=== PATIENT | male | born 1965 | race Caucasian/White ===

== ENCOUNTER 2017-10-07 23:25 | Observation (INO) ==
[2017-10-07 23:53] LABS: Basophils # 0.2 K/mcL (0.0-0.2); Basophils % 0.8 %; Eosinophils # 0.1 K/mcL (0.0-0.6); Eosinophils % 0.2 %; Hematocrit 51.8 % (37.5-50.1); Hemoglobin 17.5 g/dL (12.9-16.9); Immature Granulocytes % 3.2 % (0-4); Lymphocytes # 1.3 K/mcL (0.6-4.6); Lymphocytes % 5.2 %; Mean Corpuscular HGB Conc 33.8 g/dL (31.6-35.5); Mean Corpuscular Hemoglobin 28.5 pg (28.0-33.3); Mean Corpuscular Volume 84.5 fL (83.0-100.0); Monocytes # 1.9 K/mcL (0.0-1.3); Monocytes % 7.9 %; Neutrophils # 19.9 K/mcL (1.6-8.9); Platelet Count 272 K/mcL (140-400); Red Blood Count 6.13 M/mcL (4.19-5.50); Red Cell Distribution Width 15.6 % (11.5-14.5); Segmented Neutrophils % 82.7 %
[2017-10-08 00:13] LABS: Albumin 4.6 g/dL (3.5-5.7); Albumin/Globulin Ratio 1.4 (1.1-2.2); Bilirubin,Direct 0.2 mg/dL (0.0-0.2); Bilirubin,Indirect 0.4 mg/dL (0.0-1.2); Bilirubin,Total 0.6 mg/dL (0.3-1.0); Calcium 9.3 mg/dL (8.6-10.3); Globulin 3.2 g/dL (2.4-3.5); Total Protein 7.8 g/dL (6.4-8.9)
[2017-10-08] MEDS ORDERED: Isovue-370 500 ML INFUS..BTL IV ONE (00:37)
[2017-10-08] MEDS ORDERED: Haloperidol Lactate 5 MG/ML VIAL IVP ONE (00:38)
[2017-10-08] MEDS: 0.9 % Sodium Chloride 1,000 ML IVC SCH ×2 (00:58→01:59)
[2017-10-08] MEDS ORDERED: Potassium Chloride 40 MEQ, Lidocaine 1% 2 ML in D5% in Water 500 ML IVPB ONE ×2 (01:00→05:30)
--- NOTE | 2017-10-08 01:44 | Emergency Department Note ---
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 No provoking or alleviating factors. Denies any recent marijuana use. Has not tried any medication to make this better. Does have a history of Parkinson's. Pain Scale: 6 - Related Data Home Medications Medication Instructions Recorded Confirmed Carbidopa/Levodopa [Carbidopa-Levo 1 each PO TIDWM 08/07/15 01/16/16 ER 25-100 Tab] Sertraline [Zoloft] 50 mg PO DAILY 08/07/15 01/16/16 Aspirin Enteric Coated [Aspirin EC] 81 mg PO DAILY 01/16/16 01/16/16 Carbidopa/Levodopa 25/100 [Sinemet 1 each PO TID 01/16/16 01/16/16 25/100] Tamsulosin HCl [Flomax] 0.4 mg PO DAILY 01/16/16 01/16/16 Vitamin D3 04/30/17 Zantac 04/30/17 Previous Rx's Medication Instructions Recorded Amoxicillin 875 mg PO BID #20 tablet 04/30/17 Azithromycin 250 mg PO ONCE 4 Days tablet 09/21/17 Triamcinolone Acet 0.1% CRM 453.6 gm TP 2-4XD PRN #1 cream..g. 09/21/17 [Kenalog] Allergies Allergy/AdvReac Type Severity Reaction Status Date / Time ropinirole [From Requip] AdvReac Nausea Verified 10/07/17 23:29 All systems ED: reviewed and negative except as stated. Constitutional: Denies: fever Cardiovascular: Denies: chest pain, syncope Respiratory: Denies: cough, dyspnea Gastrointestinal: Reports: abdominal pain, nausea, vomiting, diarrhea. Denies: hematemesis, melena, hematochezia Genitourinary: Denies: urgency, dysuria, frequency, testicular mass Musculoskeletal: Denies: back pain, neck pain Integumentary: Denies: rash Neurological: Denies: headache, weakness Past Medical History - Past Medical History Attestation: Yes The following information was validated with the patient. Source: patient Medical history: Reports: other Surgical history: Reports: other Psychiatric history: Reports: no psych history - Social History Smoking Status: Current every day smoker Smokeless Tobacco Status: No Alcohol use: Reports: none Drug use: Reports: none Physical Exam - General Limitations: no limitations General appearance: alert, in no apparent distress - Head Head exam: atraumatic, normocephalic, normal inspection - Eye Eye exam: Present: normal appearance, PERRL, EOMI - ENT ENT exam: normal exam, normal oropharynx, mucous membranes moist - Neck Neck exam: Present: normal inspection, full ROM, trachea midline - Chest Chest inspection: Present: normal inspection, symmetric chest wall rise - Respiratory Respiratory exam: Present: normal lung sounds bilaterally. Absent: respiratory distress, accessory muscle use - Cardiovascular Cardiovascular exam: Present: regular rate, normal rhythm, normal heart sounds - Abdominal Exam Abdominal exam: Present: soft, tenderness (Throughout.). Absent: distention, guarding, rigidity, organomegaly - Extremities Exam Extremities exam: Present: normal inspection, full ROM, normal capillary refill. Absent: tenderness, pedal edema - Back Exam Back exam: Present: normal inspection, full ROM. Absent: tenderness - Neurological Exam Neurological exam: Present: alert, oriented X3 - Psychiatric Psychiatric exam: Present: normal affect, normal mood - Skin Skin exam: Present: warm, dry, intact, normal color. Absent: rash, cyanosis Course Course Narrative: Male patient presenting to emergency department complaining of abdominal pain nausea vomiting diarrhea that started yesterday. States that the pain as a cramping sensation. Has not taken any medication to try to help with this. He is mentating appropriately. Patient does have a history of sarcoidosis as well as department. We will provide him with Haldol for nausea management. This has stopped patient's vomiting. Patient's abdomen is soft however he does complain of a diffuse cramping on exam. He denies any recent illnesses or fevers. Denies any cough or congestion. We will get a basic lab workup on patient and a CT of patient's abdomen. - Reevaluation(s) Reevaluation #1: Patient reevaluated. He states that he is starting to feel somewhat better. He does appear clinically the high alkaline phosphatase is elevated he has a leukocytosis of 24. He does have a history of Parkinson's as well as sarcoidosis. We have given him 2 L of fluid in her replacing his potassium at this time. We will admit the patient to the hospital at this time. He is agreeable with this. Time: 03:15 - Consultations Consultation #1: Dr Forde accepted Pt in stable condition. Time: 03:37 Vital Signs Temperature 98.1 F 10/07/17 23:26 Pulse Rate 97 10/07/17 23:26 Respiratory Rate 20 10/07/17 23:26 Blood Pressure 149/101 10/07/17 23:26 O2 Sat by Pulse Oximetry 97 10/07/17 23:26 Temperature 98.1 F 10/07/17 23:26 Pulse Rate 81 10/08/17 01:34 Respiratory Rate 20 10/08/17 01:34 Blood Pressure 163/101 10/08/17 01:34 O2 Sat by Pulse Oximetry 99 10/08/17 01:34 Oxygen Delivery Oxygen Delivery Room Air Medical Decision Making - Medical Records Medical records reviewed: Yes I reviewed the patient's medical records. - Lab Data Lab results reviewed: Yes I reviewed the patient's lab results. Result diagrams: 10/07/17 23:36 10/07/17 23:36 Lab Results 10/07/17 10/07/17 Range/Units 23:36 23:36 WBC 24.1 H (4.3-11.1) K/mcL RBC 6.13 H (4.19-5.50) M/mcL Hgb 17.5 H (12.9-16.9) g/dL Hct 51.8 H (37.5-50.1) % MCV 84.5 (83.0-100.0) fL MCH 28.5 (28.0-33.3) pg MCHC 33.8 (31.6-35.5) g/dL RDW 15.6 H (11.5-14.5) % Plt Count 272 (140-400) K/mcL MPV 11.0 (9.4-12.4) fL Immature Gran % 3.2 (0-4) % Seg Neutrophils % 82.7 % Lymphocytes % 5.2 % Monocytes % 7.9 % Eosinophils % 0.2 % Basophils % 0.8 % Neutrophils # 19.9 H (1.6-8.9) K/mcL Lymphocytes # 1.3 (0.6-4.6) K/mcL Monocytes # 1.9 H (0.0-1.3) K/mcL Eosinophils # 0.1 (0.0-0.6) K/mcL Basophils # 0.2 (0.0-0.2) K/mcL Sodium 137 (136-145) mEq/L Potassium 3.0 L (3.5-5.1) mEq/L Chloride 103 (98-107) mEq/L Carbon Dioxide 16 L (23-29) mEq/L BUN 35 H (6-20) mg/dL Creatinine 1.86 H (0.70-1.30) mg/dL Est GFR ( Amer) 47 L (> 60) Est GFR (Non-Af Amer) 38 L (> 60) BUN/Creatinine Ratio 19 (6-26) Glucose 127 H (70-105) mg/dL Calculated Osmolality 294 (280-300) Calcium 9.3 (8.6-10.3) mg/dL Total Bilirubin 0.6 (0.3-1.0) mg/dL Direct Bilirubin 0.2 (0.0-0.2) mg/dL Indirect Bilirubin 0.4 (0.0-1.2) mg/dL AST 30 (13-39) Units/L ALT 17 (7-52) Units/L Alkaline Phosphatase 114 H (34-104) Units/L Serum Total Protein 7.8 (6.4-8.9) g/dL Albumin 4.6 (3.5-5.7) g/dL Globulin 3.2 (2.4-3.5) g/dL Albumin/Globulin Ratio 1.4 (1.1-2.2) Lipase 61 (11-82) Units/L - Radiology Data Radiology results reviewed: Yes I reviewed the patient's radiology results. Abdomen/Pelvis CT 10/08/17 00:37 IMPRESSION: 1. No acute abnormality in the abdomen or pelvis. 2. Cholelithiasis with no evidence of acute inflammation. 3. Left nonobstructing nephrolithiasis. 4. Stable appearance of renal cysts which cannot be definitively characterized. Based upon size and attenuation, these can be considered benign and no further follow-up is necessary. 5. Significant improvement an airspace changes and nodularity in the lower lungs suggesting a resolving infectious or inflammatory process. 6. D/ / Vance Mccain MD / Vance Mccain MD Interpreting Provider: Vance Mccain MD - EKG Data EKG #1 EKG attestation: Yes I reviewed and interpreted this EKG. EKG results narrative: Normal sinus rhythm at a rate of 99. AK interval is 142. Liseth duration is 128. QT is 371. QTC is 428. No signs of ischemia. Patient does have a left bundle branch block. This was on previous EKG dated 08/22/2015. No significant changes.
[2017-10-08 03:03] LABS: Bilirubin,Urine Negative (Negative); Blood,Urine Negative (Negative); Clarity,Urine Clear (Clear); Color,Urine Yellow (Yellow); Glucose,Urine (UA) Normal (Normal); Ketones,Urine Negative (Negative); Leukocyte Esterase,Urine Negative (Negative); Nitrite,Urine Negative (Negative); Protein,Urine Trace mg/dL (Neg-Trace); Specific Gravity,Urine 1.017 (1.010-1.025); Urobilinogen,Urine Normal (Normal)
[2017-10-08 03:05] LABS: Bacteria,Urine None Seen per hpf (None-Few); Hyaline Casts,Urine None Seen per lpf (None-Few); RBC,Urine 0-3 per hpf (0-3); Squamous Epithelial Cell,Urine Few per lpf (None-Few); WBC,Urine 0-3 per hpf (0-3)
--- NOTE | 2017-10-08 04:47 | Internal Med History&Physical ---
<Karime Thompson - Last Filed: 10/08/17 05:21> Date of Encounter: 10/08/17 Time of Encounter: 04:44 Internal Medicine - H&P: HPI Chief complaint: abdominal pain, nausea, and vomitting Admitted From: Home Plans for Post Hospital Care: Home History of present illness: Mr. Jonas is a 52 year old male with a past medical history of Parkinson's, sarcoidosis, and kidney failure stage III who presented to the ED after having intractable nausea and vomiting that began Friday evening at 8 PM. He states that he vomited 9-10 times. His abdominal pain is located midline underneath his diaphragm. He denies any new foods, traveling, or sick contacts. Patient states that he drinks well water. He admits to occasional marijuana use and has not used in a month and a half. Denies alcohol use. Admits to associated weakness and dizziness. Denies shortness of breath, fever, diarrhea, hematochezia, hematemesis, rash, or headache. Workup in the ED showed elevated WBC at 24.1, hypokalemia at 3.0, creatinine 1.89 (lower than baseline), and elevated Alk Phos. Lipase wnl. CT of the abdomen showed left nonobstructing nephrolithiasis, cholelithiasis, renal cysts. Due to hypokalemia, dehydration, and intractable N/V patient was admitted to the floor. Past Med Surg Social Fam HX - Past Medical History Medical history: other Additional medical history: Parkinson's. CKD stage III. sarcoidosis Psychiatric history: no psych history - Past Surgical History Surgical History: other Additional surgical history: cervical spinal fusion - Social History Smoking Status: Current every day smoker Smokeless Tobacco Status: No Alcohol use: none Drug use: none - Family History Mother Living Status: Hx Family Cardiac Disorders: Yes Hx Family Endocrine Disorder: Yes (DM) Father Living Status: Hx Family Cardiac Disorders: Yes Hx Family Endocrine Disorder: Yes (DM) Internal Medicine - H&P: Meds Carbidopa/Levodopa [Carbidopa-Levo ER 25-100 Tab] 1 each PO TIDWM 08/07/15 [ History] Sertraline [Zoloft] 50 mg PO DAILY 08/07/15 [History] Aspirin Enteric Coated [Aspirin EC] 81 mg PO DAILY 01/16/16 [History] Carbidopa/Levodopa 25/100 [Sinemet 25/100] 1 each PO TID 01/16/16 [History] Tamsulosin HCl [Flomax] 0.4 mg PO DAILY 01/16/16 [History] Amoxicillin 875 mg PO BID #20 tablet 04/30/17 [Rx] Vitamin D3 04/30/17 [History] Zantac 04/30/17 [History] Azithromycin 250 mg PO ONCE 4 Days tablet 09/21/17 [Rx] Triamcinolone Acet 0.1% CRM [Kenalog] 453.6 gm TP 2-4XD PRN #1 cream..g. [Rx] 3 Allergy/AdvReac Type Severity Reaction Status Date / Time ropinirole [From Requip] AdvReac Nausea Verified 10/07/17 23:29 All Systems PM: A 10-system review of systems was performed and is negative for pertinent findings except as documented above in the HPI. - Constitutional Vitals: Temp Pulse Resp BP Pulse Ox 98.1 F 72 17 132/101 96 10/07/17 23:26 10/08/17 04:43 10/08/17 04:43 10/08/17 04:43 10/08/17 04:43 Exam: Constitutional: Alert, in no acute distress, well nourished, well developed. Head: Normocephalic, atraumatic, Heart: Normal, regular rate and rhythm, no murmurs Lungs: Clear to auscultation, no wheezes, rales, or rhonchi Abdomen: bowel sounds hyperactive, Soft, nondistended, nontender, and no masses palpable, no guarding or rigidity. Extremities: pill rolling tremor, No clubbing, cyanosis, or edema, radial pulse +2/4, capillary refill <2sec. Skin: Skin warm and dry, no lesions, no rashes, no jaundice Neurologic: no focal deficits, strength within normal limits in all extremities Psych: Cooperative with exam, cognitive function intact, judgment good insight good, speech clear, Internal Med - H&P Results - Labs CBC & Chem 7: 10/07/17 23:36 10/07/17 23:36 Labs: Short CBC 10/07/17 Range/Units 23:36 WBC 24.1 H (4.3-11.1) K/mcL Hgb 17.5 H (12.9-16.9) g/dL Hct 51.8 H (37.5-50.1) % Plt Count 272 (140-400) K/mcL Neutrophils # 19.9 H (1.6-8.9) K/mcL BMP 10/07/17 23:36 Sodium 137 Potassium 3.0 L Chloride 103 Carbon Dioxide 16 L BUN 35 H Creatinine 1.86 H Glucose 127 H Calcium 9.3 Liver Function 10/07/17 Range/Units 23:36 Total Bilirubin 0.6 (0.3-1.0) mg/dL Direct Bilirubin 0.2 (0.0-0.2) mg/dL AST 30 (13-39) Units/L ALT 17 (7-52) Units/L Alkaline Phosphatase 114 H (34-104) Units/L Albumin 4.6 (3.5-5.7) g/dL Urine 10/08/17 Range/Units 02:48 Urine Color Yellow (Yellow) Urine Clarity Clear (Clear) Urine pH 6.0 (5.0-8.0) pH Units Ur Specific [place] 1.017 (1.010-1.025) Urine Protein Trace (Neg-Trace) mg/dL Urine Glucose (UA) Normal (Normal) mg/dL - Impressions ITS Impressions Abdomen/Pelvis CT 10/08/17 00:37 IMPRESSION: 1. No acute abnormality in the abdomen or pelvis. 2. Cholelithiasis with no evidence of acute inflammation. 3. Left nonobstructing nephrolithiasis. 4. Stable appearance of renal cysts which cannot be definitively characterized. Based upon size and attenuation, these can be considered benign and no further follow-up is necessary. 5. Significant improvement an airspace changes and nodularity in the lower lungs suggesting a resolving infectious or inflammatory process. 6. D/ / Vance Mccain MD / Vance Mccain MD Interpreting Provider: Vance Mccain MD - Assessment and plan (1) Abdominal pain with vomiting Current Visit: Yes Status: Acute Assessment and plan: etiology unknown at this time. Most likely 2/2 to viral gastroenteritis vs. early pancreatitis. Lipase was normal but lipase levels do not rise until 4-8 hrs after symptoms start. Gallstone and kidney stones do not show obstruction. Plan: - LR 125ml/hr - Zofran 4mg IV Q4 hrs prn - phenergan 12.5mg Q6hrs prn - clear liquid diet - repeat lipase and obtain CMP, Mg, Phos (2) Hypokalemia Current Visit: No Status: Resolved Assessment and plan: Hypokalemia most likely 2/2 to vomiting. Initially K=3.0. Replaced with 40meq KCl in the ED. Plan: - ordered another KCl 40meq IV - recheck K level after second infusion (3) Dehydration Current Visit: Yes Status: Acute Assessment and plan: Will begin LR at 125ml/hr (4) DVT prophylaxis Current Visit: Yes Status: Acute Assessment and plan: Heparin (5) Parkinson disease Current Visit: Yes Status: Acute Assessment and plan: continue home medications - Time Spent With Patient Total time spent is greater than 50% in coordination of care (as documented) at patient's floor/unit and/or counseling patient: <Cuca Forde - Last Filed: 10/08/17 05:52> Date of Encounter: 10/08/17 Internal Medicine - H&P: HPI History of present illness: Mr. Jonas is a 52 year old male All Systems PM: A 10-system review of systems was performed and is negative for pertinent findings except as documented above in the HPI. - Constitutional Vitals: Temp Pulse Resp BP Pulse Ox 98.1 F 72 17 132/101 96 10/07/17 23:26 10/08/17 04:43 10/08/17 04:43 10/08/17 04:43 10/08/17 04:43 Internal Med - H&P Results - Labs CBC & Chem 7: 10/07/17 23:36 10/07/17 23:36 Labs: Short CBC 10/07/17 Range/Units 23:36 WBC 24.1 H (4.3-11.1) K/mcL Hgb 17.5 H (12.9-16.9) g/dL Hct 51.8 H (37.5-50.1) % Plt Count 272 (140-400) K/mcL Neutrophils # 19.9 H (1.6-8.9) K/mcL BMP 10/07/17 23:36 Sodium 137 Potassium 3.0 L Chloride 103 Carbon Dioxide 16 L BUN 35 H Creatinine 1.86 H Glucose 127 H Calcium 9.3 Liver Function 10/07/17 Range/Units 23:36 Total Bilirubin 0.6 (0.3-1.0) mg/dL Direct Bilirubin 0.2 (0.0-0.2) mg/dL AST 30 (13-39) Units/L ALT 17 (7-52) Units/L Alkaline Phosphatase 114 H (34-104) Units/L Albumin 4.6 (3.5-5.7) g/dL Urine 10/08/17 Range/Units 02:48 Urine Color Yellow (Yellow) Urine Clarity Clear (Clear) Urine pH 6.0 (5.0-8.0) pH Units Ur Specific [place] 1.017 (1.010-1.025) Urine Protein Trace (Neg-Trace) mg/dL Urine Glucose (UA) Normal (Normal) mg/dL - Impressions ITS Impressions Abdomen/Pelvis CT 10/08/17 00:37 IMPRESSION: 1. No acute abnormality in the abdomen or pelvis. 2. Cholelithiasis with no evidence of acute inflammation. 3. Left nonobstructing nephrolithiasis. 4. Stable appearance of renal cysts which cannot be definitively characterized. Based upon size and attenuation, these can be considered benign and no further follow-up is necessary. 5. Significant improvement an airspace changes and nodularity in the lower lungs suggesting a resolving infectious or inflammatory process. 6. D/ / Vance Mccain MD / Vance Mccain MD Interpreting Provider: Vance Mccain MD - Attending Attestation I have seen and examined this patient independently. I have discussed with resident physician Dr. Thompson regarding the management plan. Agree with the documentation - Assessment and plan (1) Hypokalemia Current Visit: No Status: Resolved (2) Dehydration Current Visit: Yes Status: Acute (3) Abdominal pain with vomiting Current Visit: Yes Status: Acute (4) DVT prophylaxis Current Visit: Yes Status: Acute (5) Parkinson disease Current Visit: Yes Status: Acute - Time Spent With Patient Total time spent is greater than 50% in coordination of care (as documented) at patient's floor/unit and/or counseling patient:
[2017-10-08] MEDS ORDERED: Acetaminophen 325 MG TABLET PO PRN (05:17)
[2017-10-08] MEDS ORDERED: Naloxone 0.4 MG/ML INJ IVP PRN (05:17)
[2017-10-08] MEDS ORDERED: Ondansetron 4 MG/2 ML VIAL IVP PRN (05:21)
[2017-10-08] MEDS ORDERED: *HR* Promethazine 25 MG/ML VIAL IVP PRN (05:21)
[2017-10-08] MEDS ORDERED: *HR* Heparin 5,000 UNIT/ML VIAL SQ SCH (06:00)
[2017-10-08] MEDS: Carbidopa/Levodopa ER 50/200 TABLET PO SCH ×2 (11:22→12:58)
[2017-10-08 13:03] LABS: Calcium 8.8 mg/dL (8.6-10.3); Magnesium 2.1 mg/dL (1.6-2.6)
[2017-10-08 13:06] VITALS: BP 131/85
[2017-10-08] MEDS: Ringers Solution, Lactated 1,000 ML IVC SCH (13:34)
--- NOTE | 2017-10-08 14:30 | Discharge Summary ---
- NOTES TO OUTPATIENT PROVIDER Notes to Outpatient Provider: Recommend follow-up appointment within 1 week Date of Encounter: 10/08/17 Time of Encounter: 14:30 - Discharge Diagnosis (1) Abdominal pain with vomiting Priority: Primary Status: Resolved (2) Hypokalemia Priority: Primary Status: Resolved (3) Dehydration Priority: Primary Status: Acute (4) Parkinson disease Priority: Secondary Status: Chronic Hospital course: Mr. Jonas is a 52 year old male with a past medical history of Parkinson's, sarcoidosis, and kidney failure stage III who presented to the ED after having intractable nausea and vomiting that began the evening prior at 8 PM. He was placed in observation status for further workup and treatment. Patient was seen and examined in the ED with improvement in symptoms. ABD CT unremarkable. Patient denied sick contacts, no abdominal pain, loose stool or emesis. His kidney function appeared to be at baseline. Potassium was replaced and normalized. Etiology of symptoms unknown but likely secondary to gastroenteritis. His symptoms continued to improve throughout the day with supportive care and he requested discharge home. Discharge discussed with: patient, nurse - Time Spent with Patient Total time spent providing and/or coordinating discharge services: - Discharge Medications Home Medications: Carbidopa/Levodopa [Rytary ER 48.75 mg-195 mg Cap] 3 cap PO TID 10/08/17 [ History] Triamcinolone Acet 0.1% CRM [Kenalog] 1 appl TP 2-4XD PRN 10/08/17 [History] Allergies/Adverse Reactions: 3 Allergy/AdvReac Type Severity Reaction Status Date / Time ropinirole [From Requip] AdvReac Nausea Verified 10/07/17 23:29 Date of admission: 10/08/17 11:12 Primary care physician: Maira Rodriguez CNP Discharging clinician: Megan Thomson Anticipated date of discharge: 10/08/17 - Constitutional Vitals: Temp Pulse Resp BP Pulse Ox 97.7 F 68 17 131/85 98 10/08/17 13:05 10/08/17 13:05 10/08/17 13:05 10/08/17 13:05 10/08/17 13:05 General appearance: Present: A&O X 3, morbidly obese - Head Head exam: Present: atraumatic, normocephalic - Eye Eye exam: Present: PERRL, conjuntiva pink, sclera anicteric Pupils: Present: PERRL - Neck Neck exam general surgery: Present: supple, trachea midline. Absent: lymphadenopathy - Respiratory Respiratory exam: Present: CTAB. Absent: accessory muscle use, rales, rhonchi, wheezes - Cardiovascular Cardiovascular exam: Present: RRR, +S1, +S2. Absent: diastolic murmur, gallop, rubs, systolic murmur - GI/Abdominal GI/Abdominal exam: Present: normal bowel sounds, soft, no peritoneal signs. Absent: distended, tenderness - Extremities Exam Extremities exam: Present: warm, radial pulses palpable and symmetrical. Absent : calf tenderness, cyanotic, pedal edema - Neurological Exam Neurological exam: Present: CN II-XII intact, oriented X3, no focal deficits. Absent: pronater drift, facial droop, speech deficit - Skin Skin exam: Present: dry, intact - Patient Status Disposition: Home, Self-Care Condition: Good Functional capacity at discharge: independent ambulation Overall status at discharge: patient is back to baseline - Discharge Instructions Instructions: Acute Nausea and Vomiting (DC) Follow Up With: Maira Rodriguez JD EDWARDS [Primary Care Provider] - (Please call for follow-up appointment within 1 week) - Diet and Activity Activity: increase activity as tolerated Diet: advance to your usual diet
--- NOTE | 2017-10-08 18:15 | Electrocardiograph Report ---
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
== END 2017-10-08 16:12 | disposition home or self-care (01) ==
LOC: EMEROO 23:25 → 3ANU 23:25
PROVIDERS: ADMIT Internal Medicine; ATTEND Internal Medicine